=== PATIENT | male | born 1975 | race Caucasian/White ===

== ENCOUNTER 2018-05-03 10:02 | Emergency (ER) | payer MEDICAID ==
[~2018-05-03] VITALS: Ht 167.6 cm; Wt 65.0 kg
[~2018-05-03 10:02] MED LIST: ABAC1TAB14 PO; METO25TA35 PO; RAYTAZ; RITO100C; SULF1TAB24; [UNRECOGNIZED DRUG - OTHER]
--- NOTE | 2018-05-03 10:45 | NUR ---
REECE RIVERA AT BEDSIDE FOR EVAL. THIS IS A 43 YO MALE WHO PRESENTS TO THE ER C/O LLQ PAIN SINCE TUESDAY THAT HAS GRADUALLY GOTTEN WORSE. PT RATES PAIN 5/10. PT DENIES N/V/D. PT DENIES ANY PAINFUL URINATION. PT TENDER TO PALPATION. NO MASSES/BULGES NOTED AT THIS TIME. PT AO X 4. SKIN PWD. RESP EVEN AN DEQAUL. CALL LIGHT WITHIN REACH. WILL CONT TO MONITOR PT.
[2018-05-03] MEDS ORDERED: KETOROLAC 30 MG/1 ML IVPush STA (10:48)
[2018-05-03] MEDS ORDERED: KETOROLAC 30 MG/1 ML ONE (11:16)
[2018-05-03 11:27] LABS: BASOPHILS # (AUTO) 0.06 x10^3/uL (0-0.1); BASOPHILS % (AUTO) 1 % (0-1); EOSINOPHILS # (AUTO) 0.22 x10^3/uL (0-0.4); EOSINOPHILS % (AUTO) 3 % (1-7); LYMPHOCYTES # (AUTO) 1.51 x10^3/uL (1-3.4); LYMPHOCYTES % (AUTO) 21 % (22-44); MD NO; MEAN CORPUSCULAR HEMOGLOBIN 32.8 pg (27.5-34.5); MEAN CORPUSCULAR HGB CONC 33.4 g/dL (33.2-36.2); MEAN CORPUSCULAR VOLUME 98.4 fL (81-97); MEAN PLATELET VOLUME 8.1 fL (7.4-10.4); MONOCYTES # (AUTO) 0.57 x10^3/uL (0.2-0.8); MONOCYTES % (AUTO) 8 % (2-9); NEUTROPHILS # (AUTO) 4.69 x10^3/uL (1.8-6.8); NEUTROPHILS % (AUTO) 67 % (42-75); PLATELET COUNT 250 x10^3/uL (130-400); RED BLOOD COUNT 4.86 x10^6/uL (4.38-5.82); RED CELL DISTRIBUTION WIDTH 14.7 % (9.4-14.8)
--- NOTE | 2018-05-03 11:36 | NUR ---
PT CURRENTLY RESTING ON [facility]. NAD NOTED. SKIN PWD. RESP EVEN AND EQAUL. PT REPORTS PAIN IS CURRENTLY 5/10. PT MEDICATED ORDERED FOR PAIN. PT UP TO RESTROOM, STEADY UPON AMBULATION AND BACK TO [facility]. URINE SAMPLE OBTAINED AND SENT TO LAB. PT ON CONT BP AND O2 MONITORS. PT AWARE WE ARE WAITING FOR IMAGING/LAB RESULTS. CALL LIGHT WITHIN REACH. WILL CONT TO MONITOR PT.
[2018-05-03 11:38] LABS: ALBUMIN 3.7 g/dL (3.4-5.0); ANION GAP 7 mmol/L (5-15); CALCIUM 9.4 mg/dL (8.5-10.1); CHLORIDE 110 mmol/L (98-107); CREATININE 1.67 mg/dL (0.7-1.3)
--- NOTE | 2018-05-03 11:51 | NUR ---
REPORT TO DAVID HUSAIN WHO ASSUMED CARE OF PT.
[2018-05-03 12:05] LABS: MICROSCOPIC AUTO
[2018-05-03 12:09] VITALS: BP 113/74
--- NOTE | 2018-05-03 12:09 | NUR ---
CT CALLED AND INFORMED PT READY FOR SCAN. PT RESTING IN BED HAS NO NEEDS. VERY PLEASANT TO STAFF AT THIS TIME.
[2018-05-03 12:11] LABS: CULTURE INDICATED? NO
[2018-05-03] MEDS ORDERED: OMNIPAQUE 350 MG/ML, 100ML BOTTLE ONE (12:34)
--- NOTE | 2018-05-03 12:52 | NUR ---
ALL RESULTS SAMANTA, CHART UP FOR RECHECK.
--- NOTE | 2018-05-03 13:24 | NUR ---
Patient/Caregiver given discharge instructions and they have confirmed that they understand the instructions. Patient ambulatory with steady gait.
== END 2018-05-03 13:26 | disposition home or self-care (01) ==
LOC: ED 10:52
DX: K57.32 Diverticulitis of large intestine without perforation or abscess without bleeding (principal); M19.90 Unspecified osteoarthritis, unspecified site; I10 Essential (primary) hypertension; F17.200 Nicotine dependence, unspecified, uncomplicated; Z21 Asymptomatic human immunodeficiency virus [HIV] infection status
CPT/HCPCS: 36415; 74177; 80048; 81001; 82040; 85025; 96374; 99284; J1885; Q9967

== ENCOUNTER 2019-02-13 20:48 | Emergency (ER) | payer MEDICAID ==
[~2019-02-13] VITALS: Ht 170.2 cm; Wt 69.5 kg
[2019-02-13 20:54] VITALS: BP 158/101
[2019-02-13] MEDS ORDERED: INDOMETHACIN 50 MG CAPSULE PO ONE (22:00)
[2019-02-13] MEDS ORDERED: COLCHICINE 0.6 MG CAPSULE PO ONE (22:00)
[2019-02-13] MEDS ORDERED: COLCHICINE 0.6 MG CAPSULE ONE (22:09)
[2019-02-13] MEDS ORDERED: INDOMETHACIN 50 MG CAPSULE ONE (22:09)
== END 2019-02-13 23:00 ==
LOC: ED 22:45
DX: M10.032 Idiopathic gout, left wrist (principal); M10.042 Idiopathic gout, left hand; R07.89 Other chest pain; I10 Essential (primary) hypertension; Z21 Asymptomatic human immunodeficiency virus [HIV] infection status; M19.90 Unspecified osteoarthritis, unspecified site; G89.29 Other chronic pain; F41.9 Anxiety disorder, unspecified
CPT/HCPCS: 93005; 99283

== ENCOUNTER 2019-04-24 13:30 | Emergency (ER) | payer MEDICAID ==
[~2019-04-24] VITALS: Ht 170.2 cm; Wt 68.0 kg
--- NOTE | 2019-04-24 14:01 | NUR ---
PT HERE WITH C/O "GOUT FLARE UP" IN LEFT KNEE AND ANKLE AND RIGHT ANKLE WELL BUT "NOT BAD." PT HAS HX GOUT
[2019-04-24 14:16] VITALS: BP 137/88
[2019-04-24] MEDS ORDERED: OXYcodone/APAP 5/325MG TABLET PO ONE (14:30)
--- NOTE | 2019-04-24 14:32 | NUR ---
PT TO US.
[2019-04-24] MEDS ORDERED: OXYcodone/APAP 5/325MG TABLET ONE (14:36)
--- NOTE | 2019-04-24 14:38 | NUR ---
PT MEDICATED PER ORDERS.
--- NOTE | 2019-04-24 15:15 | NUR ---
ALL RESULTS BACK AT THIS TIME, CHART UP FOR RECHECK.
--- NOTE | 2019-04-24 15:38 | NUR ---
Patient/Caregiver given discharge instructions and they have confirmed that they understand the instructions. Patient ambulatory with steady gait.
== END 2019-04-24 15:51 | disposition home or self-care (01) ==
LOC: ED 15:43
DX: M10.062 Idiopathic gout, left knee (principal); M10.061 Idiopathic gout, right knee; R60.0 Localized edema; I10 Essential (primary) hypertension
CPT/HCPCS: 99284

== ENCOUNTER 2019-04-26 10:49 | Emergency (ER) | payer MEDICAID ==
[~2019-04-26] VITALS: Ht 170.2 cm; Wt 67.9 kg
[2019-04-26 11:12] VITALS: BP 127/99
== END 2019-04-26 13:05 | disposition home or self-care (01) ==
LOC: ED 12:59
DX: M25.562 Pain in left knee (principal); M25.462 Effusion, left knee; I10 Essential (primary) hypertension
CPT/HCPCS: 36415; 84550; 99284